=== PATIENT | male | born 1950 | race American Indian/Alaskan Native ===

== ENCOUNTER 2016-09-24 11:06 | Emergency (ER) | payer MEDICARE ==
[2016-09-24 15:29] VITALS: BP 159/69
--- NOTE | 2016-09-24 15:40 | Emergency Department Report ---
ED Back Pain/Injury HPI - General Chief Complaint: Extremity Injury, Lower Stated Complaint: LEFT LEG PAIN Time Seen by Provider: 09/24/16 15:10 Source: patient Limitations: No Limitations - History of Present Illness Initial Comments: "I hurt my back moving furniture" Complaint: back pain, back injury Onset/Timin -: Sudden, week(s) Similar Symptoms Previously: Yes Place: work Radiation: buttocks, left leg Severity: moderate Severity scale (0 -10): 4 Quality: sharp, aching Consistency: intermittent Improves With: none Worsens With: movement, other (bending twisting) Context: while lifting, turning/twisting, bending Associated Symptoms: denies: weakness, numbness, difficulty walking, difficulty urinating, incontinence, fever/chills, abdominal pain, nausea/vomiting, shortness of breath Treatments Prior to Arrival: other (none ) - Related Data Home Medications Medication Instructions Recorded Confirmed Last Taken Omeprazole [PriLOSEC] 20 mg PO QDAY 07/22/14 07/22/14 Unknown Previous Rx's Medication Instructions Recorded Last Taken Type Hydrochlorothiazide [Hctz] 12.5 mg PO QDAY #30 capsule 07/23/14 Unknown Rx Pantoprazole Sodium [Protonix] 20 mg PO BID #60 tablet. 07/23/14 Unknown Rx Sucralfate [Carafate] 1 gm PO ACHS #60 tablet 07/23/14 Unknown Rx Cyclobenzaprine [Flexeril] 10 mg PO TID PRN #30 tablet 09/24/16 Unknown Rx Naproxen [Naprosyn TAB] 500 mg PO BID PRN #60 tablet 09/24/16 Unknown Rx Allergies Allergy/AdvReac Type Severity Reaction Status Date / Time No Known Allergies Allergy Verified 09/24/16 12:15 ED Review of Systems ROS: Stated complaint: LEFT LEG PAIN Other details as noted in HPI Constitutional: denies: chills, fever Eyes: denies: eye pain, eye discharge, vision change ENT: denies: ear pain, throat pain Respiratory: denies: cough, shortness of breath, wheezing Cardiovascular: denies: chest pain, palpitations Endocrine: no symptoms reported Gastrointestinal: denies: abdominal pain, nausea, diarrhea Genitourinary: denies: urgency, dysuria Musculoskeletal: back pain Skin: denies: rash, lesions Neurological: denies: headache, weakness, paresthesias Psychiatric: denies: anxiety, depression Hematological/Lymphatic: denies: easy bleeding, easy bruising ED Past Medical Hx - Past Medical History Hx GERD: Yes Additional medical history: GI BLEED. PROSTATE - Surgical History Additional Surgical History: HERNIA REPAIR X 2 - Social History Smoking Status: Former Smoker Substance Use Type: None - Medications Home Medications: Home Medications Medication Instructions Recorded Confirmed Last Taken Type Omeprazole [PriLOSEC] 20 mg PO QDAY 07/22/14 07/22/14 Unknown History Hydrochlorothiazide [Hctz] 12.5 mg PO QDAY #30 capsule 07/23/14 Unknown Rx Pantoprazole Sodium [Protonix] 20 mg PO BID #60 tablet. 07/23/14 Unknown Rx Sucralfate [Carafate] 1 gm PO ACHS #60 tablet 07/23/14 Unknown Rx Cyclobenzaprine [Flexeril] 10 mg PO TID PRN #30 tablet 09/24/16 Unknown Rx Naproxen [Naprosyn TAB] 500 mg PO BID PRN #60 tablet 09/24/16 Unknown Rx ED Physical Exam - General Limitations: No Limitations General appearance: alert, in no apparent distress - Head Head exam: Present: atraumatic - Eye Eye exam: Present: normal appearance - ENT ENT exam: Present: mucous membranes moist - Neck Neck exam: Present: normal inspection - Respiratory Respiratory exam: Present: normal lung sounds bilaterally. Absent: respiratory distress - Cardiovascular Cardiovascular Exam: Present: regular rate, normal rhythm. Absent: systolic murmur, diastolic murmur, rubs, gallop - GI/Abdominal GI/Abdominal exam: Present: soft, normal bowel sounds - Rectal Rectal exam: Present: deferred - Extremities Exam Extremities exam: Present: normal inspection - Back Exam Back exam: Present: normal inspection, tenderness, muscle spasm. Absent: CVA tenderness (R), CVA tenderness (L), paraspinal tenderness, vertebral tenderness , rash noted - Expanded Back Exam Expanded Back exam: Present: intact bulbocavernosus reflex, other (no posterior vertebral point tenderness no paraspinuse muscle tenderness ). Absent: saddle anesthesia Back exam: Sciatic Notch Tenderness: Left, Positive Straight Leg Raise: Left, Negative Straight Leg Raising: Right - Neurological Exam Neurological exam: Present: alert, oriented X3 - Expanded Neurological Exam Expanded Patient oriented to: Present: person, place, time Speech: Present: fluid speech Sensory exam: Upper Extremity Light Touch: Normal, Upper Extremity Pin Prick: Normal, Upper Extremity Temperature: Normal, UE 2 Point Discrimination: Normal, Lower Extremity Light Touch: Normal, Lower Extremity Pin Prick: Normal, Lower Extremity Temperature: Normal, LE 2 Point Discrimination: Normal Motor strength exam: RUE: 5, LUE: 5, RLE: 5, LLE: 5 DTR: bicep (R): 2+, bicep (L): 2+, tricep (R): 2+, tricep (L): 2+, knee (R): 2+ , knee (L): 2+, ankle (R): 2+, ankle (L): 2+ Best Eye Response ([place]): (4) open spontaneously Best Motor Response ([place]): (6) obeys commands Best Verbal Response ([place]): (5) oriented [place] Total: 15 - Psychiatric Psychiatric exam: Present: normal affect, normal mood - Skin Skin exam: Present: warm, dry, intact, normal color. 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 who presents LL back and LLE pain x 1 week pt advies "I hurt my back moving furniture last weak' pain described as 4/10 aching and spasm pt denies dysuria no hematuria no urinary urgency or frequency , exam: pt appears with nad , back: no posterior vertebral point tenderness no paraspinus muscle tenderness no weakness no paresthesia no tingling , no loss or decrease in bowel or bladder function , pain improved with toradol IM, pt is curerently ambulatory gait is steady with nad at this time UA: normal Critical care attestation.: If time is entered above; I have spent that time in minutes in the direct care of this critically ill patient, excluding procedure time. ED Disposition Clinical Impression: Low back strain Qualifiers: Encounter type: initial encounter Qualified Code(s): S39.012A - Strain of muscle, fascia and tendon of lower back, initial encounter Disposition: TO HOME OR SELFCARE Is pt being admited?: No Does the pt Need Aspirin: No Condition: Stable Prescriptions: Cyclobenzaprine [Flexeril] 10 mg PO TID PRN #30 tablet PRN Reason: Muscle Spasm Naproxen [Naprosyn TAB] 500 mg PO BID PRN #60 tablet PRN Reason: Pain Referrals: PRIMARY CARE, [Primary Care Provider] - 3-5 Days Forms: Work/School Release Form(ED) Time of Disposition: 16:51
[2016-09-24] MEDS ORDERED: TORADOL IM ONE (15:41)
[2016-09-24 16:28] LABS: Bilirubin,Urine NEG (Negative); Blood,Urine NEG (Negative); Ketones,Urine NEG (Negative); Leukocyte Esterase,Urine NEG (Negative); Nitrite,Urine NEG (Negative); Protein,Urine <15 mg/dL mg/dL (Negative); Urobilinogen,Urine < 2.0 mg/dL (<2.0); WBC,Urine < 1.0 /HPF (0.0-6.0)
== END 2016-09-24 16:55 | disposition home or self-care (01) ==
LOC: ED 11:06
DX: S39.012A Strain of muscle, fascia and tendon of lower back, initial encounter (principal); Z87.891 Personal history of nicotine dependence; X50.1XXA Overexertion from prolonged static or awkward postures, initial encounter; Y93.89 Activity, other specified; Y99.8 Other external cause status; Y92.89 Other specified places as the place of occurrence of the external cause
CPT/HCPCS: 81001; 96372; 99283; J1885

== ENCOUNTER 2019-05-31 21:56 | Emergency (ER) | payer OTHER, MEDICARE ==
[2019-05-31] MEDS ORDERED: IBUPROFEN 600 MG TAB PO ONE ×2 (22:11→22:13)
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
--- NOTE | 2019-05-31 22:42 | XRay Report ---
LUMBAR SPINE 3 VIEWS INDICATION: pain. COMPARISON: No relevant prior imaging study available. FINDINGS: Lumbar vertebral body height is maintained. There is moderate diffuse disc space narrowing. In the lo wer lumbar facet arthropathy is noted as well. No listhesis is seen. IMPRESSION: 1. No acute findings. Signer Name: Waldemar Cornell MD Signed: 05/31/2019 10:37 PM Workstation Name: [id number]
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
[2019-06-01 03:09] VITALS: BP 164/93
== END 2019-06-01 03:05 | disposition home or self-care (01) ==
LOC: ED 21:56
DX: S16.1XXA Strain of muscle, fascia and tendon at neck level, initial encounter (principal); M54.5 Low back pain; K21.9 Gastro-esophageal reflux disease without esophagitis; Z98.890 Other specified postprocedural states; Z79.1 Long term (current) use of non-steroidal anti-inflammatories (NSAID); Z79.899 Other long term (current) drug therapy; V49.49XA Driver injured in collision with other motor vehicles in traffic accident, initial encounter; Y93.89 Activity, other specified; Y92.488 Other paved roadways as the place of occurrence of the external cause; Y99.8 Other external cause status
CPT/HCPCS: 72100

== ENCOUNTER 2019-07-02 14:21 | Emergency (ER) | payer MEDICARE, OTHER ==
[2019-07-02 15:22] LABS: Basophils % (Auto) 0.7 % (0.0-1.8); Eosinophils # (Auto) 0.3 K/mm3 (0.0-0.4); Eosinophils % (Auto) 4.4 % (0.0-4.3); Hematocrit 42.6 % (35.5-45.6); Hemoglobin 14.3 gm/dl (11.8-15.2); Lymphocytes # (Auto) 2.8 K/mm3 (1.2-5.4); Lymphocytes % (Auto) 44.7 % (13.4-35.0); Mean Corpuscular HGB Conc 34 % (32-34); Mean Corpuscular Volume 97 fl (84-94); Monocytes # (Auto) 0.6 K/mm3 (0.0-0.8); Platelet Count 324 K/mm3 (140-440); Red Blood Count 4.38 M/mm3 (3.65-5.03); Red Cell Distribution Width 12.8 % (13.2-15.2)
[2019-07-02 15:37] LABS: Alanine Aminotransferase 14 units/L (7-56); Albumin 4.2 g/dL (3.9-5); BUN/Creatinine Ratio 9; Blood Urea Nitrogen 7 mg/dL (9-20); Calcium 9.1 mg/dL (8.4-10.2); Hemolysis Index 11
[2019-07-02] MEDS ORDERED: SODIUM CHLORIDE 0.9% 1000 ML 1,000 ML IV ONE (16:33)
--- NOTE | 2019-07-02 17:02 | Emergency Department Report ---
ED Abdominal Pain HPI - General Chief Complaint: Abdominal Pain Stated Complaint: LEFT FLANK PAIN Time Seen by Provider: 07/02/19 16:15 Source: patient Mode of arrival: Ambulatory Limitations: No Limitations - History of Present Illness Initial Comments: Patient is a 69-year-old male presents emergency room complaints of left lower quadrant abdominal pain that began 2 days ago. He states he also has some left lower back pain. He denies any nausea, vomiting, diarrhea, fever, hematochezia, melena, chest pain, shortness of breath. He states that he had a normal bowel movement 2 days ago. He states he has a past medical history of GERD and erosive PUD requiring emergent surgery in . Patient states his blood pressure is currently being watched by his primary care doctor but he is not on any medications currently. He denies any allergies to medications. - Related Data Home Medications Medication Instructions Recorded Confirmed Last Taken Omeprazole [PriLOSEC] 20 mg PO QDAY 07/22/14 07/22/14 Unknown Previous Rx's Medication Instructions Recorded Last Taken Type Pantoprazole Sodium [Protonix] 20 mg PO BID #60 tablet. 07/23/14 Unknown Rx hydroCHLOROthiazide [Hctz] 12.5 mg PO QDAY #30 capsule 07/23/14 Unknown Rx Cyclobenzaprine [Flexeril] 10 mg PO TID PRN #30 tablet 09/24/16 Unknown Rx Naproxen [Naprosyn TAB] 500 mg PO BID PRN #60 tablet 09/24/16 Unknown Rx Ibuprofen [Motrin 600 MG tab] 600 mg PO Q8H PRN #20 tablet 06/01/19 Unknown Rx Methocarbamol [Robaxin] 500 mg PO BID PRN #15 tablet 06/01/19 Unknown Rx Docusate Sodium [Colace] 100 mg PO BID PRN #14 capsule 07/02/19 Unknown Rx Pantoprazole [Protonix TAB] 20 mg PO BID #60 tablet. 07/02/19 Unknown Rx Sucralfate [Carafate] 1 gm PO ACHS #21 tablet 07/02/19 Unknown Rx Allergies Allergy/AdvReac Type Severity Reaction Status Date / Time No Known Allergies Allergy Verified 09/24/16 12:15 ED Review of Systems ROS: Stated complaint: LEFT FLANK PAIN Other details as noted in HPI Comment: All other systems reviewed and negative ED Past Medical Hx - Past Medical History Previous Medical History?: Yes Hx GERD: Yes Additional medical history: GI BLEED. PROSTATE - Surgical History Past Surgical History?: Yes Additional Surgical History: HERNIA REPAIR X 2 - Social History Smoking Status: Never Smoker Substance Use Type: None - Medications Home Medications: Home Medications Medication Instructions Recorded Confirmed Last Taken Type Omeprazole [PriLOSEC] 20 mg PO QDAY 07/22/14 07/22/14 Unknown History Pantoprazole Sodium [Protonix] 20 mg PO BID #60 tablet. 07/23/14 Unknown Rx hydroCHLOROthiazide [Hctz] 12.5 mg PO QDAY #30 capsule 07/23/14 Unknown Rx Cyclobenzaprine [Flexeril] 10 mg PO TID PRN #30 tablet 09/24/16 Unknown Rx Naproxen [Naprosyn TAB] 500 mg PO BID PRN #60 tablet 09/24/16 Unknown Rx Ibuprofen [Motrin 600 MG tab] 600 mg PO Q8H PRN #20 tablet 06/01/19 Unknown Rx Methocarbamol [Robaxin] 500 mg PO BID PRN #15 tablet 06/01/19 Unknown Rx Docusate Sodium [Colace] 100 mg PO BID PRN #14 capsule 07/02/19 Unknown Rx Pantoprazole [Protonix TAB] 20 mg PO BID #60 tablet. 07/02/19 Unknown Rx Sucralfate [Carafate] 1 gm PO ACHS #21 tablet 07/02/19 Unknown Rx ED Physical Exam - General Limitations: No Limitations General appearance: alert, in no apparent distress - Head Head exam: Present: atraumatic, normocephalic - Eye Eye exam: Present: normal appearance - ENT ENT exam: Present: mucous membranes moist - Respiratory Respiratory exam: Present: normal lung sounds bilaterally. Absent: respiratory distress, wheezes, rales, rhonchi, stridor, chest wall tenderness, accessory muscle use, decreased breath sounds, prolonged expiratory - Cardiovascular Cardiovascular Exam: Present: regular rate, normal rhythm, normal heart sounds. Absent: systolic murmur, diastolic murmur, rubs, gallop - GI/Abdominal GI/Abdominal exam: Present: soft, tenderness (LLQ), normal bowel sounds, other (old, healed scar present in the midline of the abdomen). Absent: distended, guarding, rebound, rigid, mass, hernia - Back Exam Back exam: Absent: CVA tenderness (R), CVA tenderness (L) - Neurological Exam Neurological exam: Present: alert, oriented X3 - Psychiatric Psychiatric exam: Present: normal affect, normal mood - Skin Skin exam: Present: warm, dry, intact ED Course Vital Signs 07/02/19 07/02/19 14:26 18:42 Temperature 98.2 F Pulse Rate 94 H 54 L Respiratory 16 16 Rate Blood Pressure 156/102 Blood Pressure 187/108 [Right] O2 Sat by Pulse 96 98 Oximetry ED Medical Decision Making - Lab Data Result diagrams: 07/02/19 14:34 07/02/19 14:34 Lab Results 07/02/19 07/02/19 07/02/19 Range/Units 14:34 14:34 17:18 WBC 6.3 (4.5-11.0) K/mm3 RBC 4.38 (3.65-5.03) M/mm3 Hgb 14.3 (11.8-15.2) gm/dl Hct 42.6 (35.5-45.6) % MCV 97 H (84-94) fl MCH 33 H (28-32) pg MCHC 34 (32-34) % RDW 12.8 L (13.2-15.2) % Plt Count 324 (140-440) K/mm3 Lymph % (Auto) 44.7 H (13.4-35.0) % [place] % (Auto) 10.0 H (0.0-7.3) % Eos % (Auto) 4.4 H (0.0-4.3) % Baso % (Auto) 0.7 (0.0-1.8) % Lymph # 2.8 (1.2-5.4) K/mm3 [place] # 0.6 (0.0-0.8) K/mm3 Eos # 0.3 (0.0-0.4) K/mm3 Baso # 0.0 (0.0-0.1) K/mm3 Seg Neutrophils % 40.2 (40.0-70.0) % Seg Neutrophils # 2.5 (1.8-7.7) K/mm3 Sodium 139 (137-145) mmol/L Potassium 3.8 (3.6-5.0) mmol/L Chloride 103.2 (98-107) mmol/L Carbon Dioxide 20 L (22-30) mmol/L Anion Gap 20 mmol/L BUN 7 L (9-20) mg/dL Creatinine 0.8 (0.8-1.5) mg/dL Estimated GFR > 60 ml/min BUN/Creatinine Ratio 9 % Glucose 144 H (75-100) mg/dL Calcium 9.1 (8.4-10.2) mg/dL Total Bilirubin 0.70 (0.1-1.2) mg/dL AST 16 (5-40) units/L ALT 14 (7-56) units/L Alkaline Phosphatase 52 (35-129) units/L Total Protein 7.4 (6.3-8.2) g/dL Albumin 4.2 (3.9-5) g/dL Albumin/Globulin Ratio 1.3 % Urine Color Yellow (Yellow) Urine Turbidity Clear (Clear) Urine pH 7.0 (5.0-7.0) Ur Specific [place] 1.012 (1.003-1.030) Urine Protein <15 mg/dl (Negative) mg/dL Urine Glucose (UA) Neg (Negative) mg/dL Urine Ketones Neg (Negative) mg/dL Urine Blood Neg (Negative) Urine Nitrite Neg (Negative) Urine Bilirubin Neg (Negative) Urine Urobilinogen < 2.0 (<2.0) mg/dL Ur Leukocyte Esterase Neg (Negative) Urine WBC (Auto) < 1.0 (0.0-6.0) /HPF Urine RBC (Auto) 1.0 (0.0-6.0) /HPF Urine Bacteria (Auto) 1+ (Negative) /HPF - Radiology Data Radiology results: report reviewed CT abdomen pelvis w con INDICATION / CLINICAL INFORMATION: MAIN: LLQ abd pain x4days [id number] ml. TECHNIQUE: All CT scans at this location are performed using CT dose reduction for ALARA by means of automated exposure control. COMPARISON: None available. FINDINGS: No free fluid is seen in the abdomen. Diffuse atherosclerotic changes present without evidence for an aneurysm. Tiny bilateral renal cysts are present. The liver, spleen, pancreas and adrenal glands are normal. There is a lipoma in one of the oblique muscles on the right laterally In the pelvis, no free fluid is seen. No enlarged lymph nodes are identified. The prostate is enlarged compressing the base of the bladder and the bladder is moderately distended.. Changes of diverticulosis are present. The appendix is normal. Severe degenerative changes seen in the left hip with moderately advanced degenerative change throughout the lumbar spine IMPRESSION: 1. Enlarged prostate with moderately distended bladder 2. Diffuse atherosclerotic change without evidence of an aneurysm 3. Tiny bilateral renal cysts 4. Lipoma in one of the oblique muscles on the right laterally 5. Diverticulosis 6. Severe degenerative change in the left hip with moderately advanced degenerative change throughout the lumbar spine Signer Name: Aneudy Carter MD FACR Signed: 07/02/2019 5:34 PM Workstation Name: [id number] Transcribed By: Dictated By: Aneudy Carter MD Electronically Authenticated By: Aneudy Carter MD Signed Date/Time: 07/02/191733 DD/ 29 TD/TT: - Medical Decision Making Patient is a 69-year-old male presents emergency room complaints of left lower quadrant abdominal pain that began 2 days ago. He states he also has some left lower back pain. He denies any nausea, vomiting, diarrhea, fever, hematochezia, melena, chest pain, shortness of breath. He states that he had a normal bowel movement 2 days ago. He states he has a past medical history of GERD and erosi ve PUD requiring emergent surgery in . Patient states his blood pressure is currently being watched by his primary care doctor but he is not on any medications currently. He denies any allergies to medications. Vitals are stable. Labs are stable. UA within normal limits. On exam left lower quadrant tenderness to palpation, no guarding, no rigidity, no rebound, normal bowel sounds. CT abd pelvis with IV contrast: 1. Enlarged prostate with moderately distended bladder 2. Diffuse atherosclerotic change without evidence of an aneurysm 3. Tiny bilateral renal cysts 4. Lipoma in one of the oblique muscles on the right laterally 5. Diverticulosis 6. Severe degenerative change in the left hip with moderately advanced degenerative change throughout the lumbar spine. Discussed all results with patient. Advised patient that he would need to see a urologist for the enlarged prostate and a GI doctor for the abdominal pain. And that he would also need to follow-up with his primary care physician. Patient given prescription for Carafate, Protonix, Colace. He states that the pain does worsen after eating so could be related to PUD but he is not having any hematochezia or melena. advised pt Please take medication as prescribed. Increase your water intake. Increase your fiber intake. Follow-up with a primary care doctor. Follow-up with a urologist regarding the enlarged prost ate. Follow-up with a GI doctor regarding the abdominal pain. Return to the emergency room immediately for any new or worsening symptoms. - Differential Diagnosis Diverticulitis, diverticulosis, BPH, UTI, colitis, obstruction, constipatio Critical care attestation.: If time is entered above; I have spent that time in minutes in the direct care of this critically ill patient, excluding procedure time. ED Disposition Clinical Impression: Enlarged prostate, Atherosclerosis, Renal cyst, Diverticulosis Abdominal pain Qualifiers: Abdominal location: left lower quadrant Qualified Code(s): R10.32 - Left lower quadrant pain Lipoma Qualifiers: Lipoma location: trunk Qualified Code(s): D17.1 - Benign lipomatous neoplasm of skin and subcutaneous tissue of trunk Degenerative joint disease of left hip Qualifiers: Osteoarthritis type: unspecified Qualified Code(s): M16.12 - Unilateral primary osteoarthritis, left hip Disposition: TO HOME OR SELFCARE Is pt being admited?: No Does the pt Need Aspirin: No Condition: Stable Instructions: Constipation (ED), High Fiber Diet (ED), Abdominal Pain (ED) Additional Instructions: Please take medication as prescribed. Increase your water intake. Increase your fiber intake. Follow-up with a primary care doctor. Follow-up with a urologist regarding the enlarged prostate. Follow-up with a GI doctor regarding the abdominal pain. Return to the emergency room immediately for any new or worsening symptoms. Prescriptions: Sucralfate [Carafate] 1 gm PO ACHS #21 tablet Docusate Sodium [Colace] 100 mg PO BID PRN #14 capsule PRN Reason: constipation Pantoprazole [Protonix TAB] 20 mg PO BID #60 tablet. Referrals: [facility] [Primary Care Provider] - 2-3 Days NEWTON DAILEY MD [Staff Physician] - 2-3 Days [facility] [Provider Group] - 2-3 Days Time of Disposition: 17:57 Print Language: KYRGYZ
[2019-07-02 17:38] LABS: Bacteria,Urine 1+ /HPF (Negative); Bilirubin,Urine NEG (Negative); Blood,Urine NEG (Negative); Color,Urine Yellow (Yellow); Protein,Urine <15 mg/dL mg/dL (Negative); Urobilinogen,Urine < 2.0 mg/dL (<2.0); WBC,Urine < 1.0 /HPF (0.0-6.0)
--- NOTE | 2019-07-02 17:38 | Cat Scan Report ---
CT abdomen pelvis w con INDICATION / CLINICAL INFORMATION: MAIN: LLQ abd pain x4days [id number] ml. TECHNIQUE: All CT scans at this location are performed using CT dose reduction for ALARA by means of automated e xposure control. COMPARISON: None available. FINDINGS: No free fluid is seen in the abdomen. Diffuse atherosclerotic changes present without evidence for an aneurysm. Tiny bilateral renal cysts are present. The liver, spleen, pancreas and adrenal glands are normal. There is a lipoma in one of the oblique muscles on the right laterally In the pelvis, no free fluid is seen. No enlarged lymph nodes are identified. The prostate is enlarge d compressing the base of the bladder and the bladder is moderately distended.. Changes of diverticul osis are present. The appendix is normal. Severe degenerative changes seen in the left hip with moder ately advanced degenerative change throughout the lumbar spine IMPRESSION: 1. Enlarged prostate with moderately distended bladder 2. Diffuse atherosclerotic change without evidence of an aneurysm 3. Tiny bilateral renal cysts 4. Lipoma in one of the oblique muscles on the right laterally 5. Diverticulosis 6. Severe degenerative change in the left hip with moderately advanced degenerative change throughout the lumbar spine Signer Name: Aneudy Carter MD FACR Signed: 07/02/2019 5:34 PM Workstation Name: [id number]
[2019-07-02 18:43] VITALS: BP 187/108
== END 2019-07-02 18:43 | disposition home or self-care (01) ==
LOC: ED 14:21
DX: K57.90 Diverticulosis of intestine, part unspecified, without perforation or abscess without bleeding (principal); D17.1 Benign lipomatous neoplasm of skin and subcutaneous tissue of trunk; M16.12 Unilateral primary osteoarthritis, left hip; I70.8 Atherosclerosis of other arteries; N28.1 Cyst of kidney, acquired
CPT/HCPCS: 36415; 74177; 80053; 81001; 85025; 99284; J7030; Q9967

== ENCOUNTER 2019-12-19 12:51 | Emergency (ER) | payer MEDICARE ==
[2019-12-19 13:03] VITALS: BP 157/92
[2019-12-19 14:09] LABS: Basophils # (Auto) 0.1 K/mm3 (0.0-0.1); Eosinophils # (Auto) 0.4 K/mm3 (0.0-0.4); Eosinophils % (Auto) 6.9 % (0.0-4.3); Hematocrit 41.1 % (35.5-45.6); Hemoglobin 13.5 gm/dl (11.8-15.2); Lymphocytes # (Auto) 2.3 K/mm3 (1.2-5.4); Lymphocytes % (Auto) 43.3 % (13.4-35.0); Mean Corpuscular HGB Conc 33 % (32-34); Mean Corpuscular Volume 99 fl (84-94); Monocytes # (Auto) 0.6 K/mm3 (0.0-0.8); Monocytes % (Auto) 11.9 % (0.0-7.3); Platelet Count 291 K/mm3 (140-440); Red Blood Count 4.17 M/mm3 (3.65-5.03); Red Cell Distribution Width 13.3 % (13.2-15.2)
[2019-12-19 14:21] LABS: Alanine Aminotransferase 14 units/L (7-56); Albumin 4.3 g/dL (3.9-5); Blood Urea Nitrogen 7 mg/dL (9-20); Calcium 9.1 mg/dL (8.4-10.2); Hemolysis Index 5
[2019-12-19 14:25] LABS: BUN/Creatinine Ratio 10
[2019-12-19] MEDS ORDERED: SODIUM CHLORIDE 0.9% 1000 ML 1,000 ML IV ONE (15:37)
[2019-12-19] MEDS ORDERED: ONDANSETRON 4 MG/2 ML INJ IV ONE (15:37)
[2019-12-19] MEDS ORDERED: FAMOTIDINE 20 MG/2 ML INJ IV ONE (15:37)
[2019-12-19] MEDS ORDERED: MORPHINE 4 MG/1 ML INJ IV ONE (15:37)
[2019-12-19] MEDS ORDERED: ALUM-MAG HYDROXIDE-SIMETHICONE 200-200-20MG/5ML ORAL LIQD 30 ML PO ONE (15:38)
--- NOTE | 2019-12-19 16:28 | Emergency Department Report ---
ED Abdominal Pain HPI - General Chief Complaint: Abdominal Pain Stated Complaint: ABD PAIN Time Seen by Provider: 12/19/19 15:28 Source: patient Mode of arrival: Ambulatory Limitations: No Limitations - History of Present Illness Initial Comments: Patient is a 69-year-old male presents emergency room with complaints of abdominal pain that began 3 days ago. He states he has associated nausea, generalized weakness, back pain. He denies any fever, vomiting, diarrhea, dysuria, hematuria, hematochezia, hematemesis, melena. He states he had a normal bowel movement yesterday. He states that worsens with eating. He states he has a past medical history of GERD. Allergies to medications. He states that he does have a GI doctor at [facility]. He states he had a EGD/colonoscopy 2 years ago. Severity scale (0 -10): 8 - Related Data Home Medications Medication Instructions Recorded Confirmed Last Taken Omeprazole [PriLOSEC] 20 mg PO QDAY 07/22/14 07/22/14 Unknown Previous Rx's Medication Instructions Recorded Last Taken Type Pantoprazole Sodium [Protonix] 20 mg PO BID #60 tablet. 07/23/14 Unknown Rx hydroCHLOROthiazide [Hctz] 12.5 mg PO QDAY #30 capsule 07/23/14 Unknown Rx Cyclobenzaprine [Flexeril] 10 mg PO TID PRN #30 tablet 09/24/16 Unknown Rx Naproxen [Naprosyn TAB] 500 mg PO BID PRN #60 tablet 09/24/16 Unknown Rx Ibuprofen [Motrin 600 MG tab] 600 mg PO Q8H PRN #20 tablet 06/01/19 Unknown Rx Methocarbamol [Robaxin] 500 mg PO BID PRN #15 tablet 06/01/19 Unknown Rx Docusate Sodium [Colace] 100 mg PO BID PRN #14 capsule 07/02/19 Unknown Rx Pantoprazole [Protonix TAB] 20 mg PO BID #60 tablet. 07/02/19 Unknown Rx Sucralfate [Carafate] 1 gm PO ACHS #21 tablet 07/02/19 Unknown Rx Famotidine [Pepcid] 40 mg PO QHS #14 tablet 12/19/19 Unknown Rx traMADoL [Ultram 50 MG tab] 50 mg PO Q6HR PRN #10 tablet 12/19/19 Unknown Rx Allergies Allergy/AdvReac Type Severity Reaction Status Date / Time No Known Allergies Allergy Verified 09/24/16 12:15 ED Review of Systems ROS: Stated complaint: ABD PAIN Other details as noted in HPI Comment: All other systems reviewed and negative ED Past Medical Hx - Past Medical History Previous Medical History?: Yes Hx GERD: Yes Additional medical history: GI BLEED. PROSTATE - Surgical History Past Surgical History?: Yes Additional Surgical History: HERNIA REPAIR X 2 - Social History Smoking Status: Former Smoker Substance Use Type: None - Medications Home Medications: Home Medications Medication Instructions Recorded Confirmed Last Taken Type Omeprazole [PriLOSEC] 20 mg PO QDAY 07/22/14 07/22/14 Unknown History Pantoprazole Sodium [Protonix] 20 mg PO BID #60 tablet. 07/23/14 Unknown Rx hydroCHLOROthiazide [Hctz] 12.5 mg PO QDAY #30 capsule 07/23/14 Unknown Rx Cyclobenzaprine [Flexeril] 10 mg PO TID PRN #30 tablet 09/24/16 Unknown Rx Naproxen [Naprosyn TAB] 500 mg PO BID PRN #60 tablet 09/24/16 Unknown Rx Ibuprofen [Motrin 600 MG tab] 600 mg PO Q8H PRN #20 tablet 06/01/19 Unknown Rx Methocarbamol [Robaxin] 500 mg PO BID PRN #15 tablet 06/01/19 Unknown Rx Docusate Sodium [Colace] 100 mg PO BID PRN #14 capsule 07/02/19 Unknown Rx Pantoprazole [Protonix TAB] 20 mg PO BID #60 tablet. 07/02/19 Unknown Rx Sucralfate [Carafate] 1 gm PO ACHS #21 tablet 07/02/19 Unknown Rx Famotidine [Pepcid] 40 mg PO QHS #14 tablet 12/19/19 Unknown Rx traMADoL [Ultram 50 MG tab] 50 mg PO Q6HR PRN #10 tablet 12/19/19 Unknown Rx ED Physical Exam - General Limitations: No Limitations General appearance: alert, in no apparent distress - Head Head exam: Present: atraumatic, normocephalic - Eye Eye exam: Present: normal appearance - ENT ENT exam: Present: mucous membranes moist - Respiratory Respiratory exam: Present: normal lung sounds bilaterally. Absent: respiratory distress, wheezes, rales, rhonchi, stridor, chest wall tenderness, accessory muscle use, decreased breath sounds, prolonged expiratory - Cardiovascular Cardiovascular Exam: Present: regular rate, normal rhythm, normal heart sounds. Absent: systolic murmur, diastolic murmur, rubs, gallop - GI/Abdominal GI/Abdominal exam: Present: soft, tenderness (mild generalized upper), normal bowel sounds. Absent: distended, guarding, rebound, rigid - Neurological Exam Neurological exam: Present: alert, oriented X3 - Psychiatric Psychiatric exam: Present: normal affect, normal mood - Skin Skin exam: Present: warm, dry, intact ED Course Vital Signs 12/19/19 13:02 Temperature 98.2 F Pulse Rate 70 Respiratory 18 Rate Blood Pressure 157/92 O2 Sat by Pulse 100 Oximetry ED Medical Decision Making - Lab Data Result diagrams: 12/19/19 13:31 12/19/19 13:31 Lab Results 12/19/19 12/19/19 12/19/19 Range/Units 13:31 13:31 16:59 WBC 5.3 (4.5-11.0) K/mm3 RBC 4.17 (3.65-5.03) M/mm3 Hgb 13.5 (11.8-15.2) gm/dl Hct 41.1 (35.5-45.6) % MCV 99 H (84-94) fl MCH 32 (28-32) pg MCHC 33 (32-34) % RDW 13.3 (13.2-15.2) % Plt Count 291 (140-440) K/mm3 Lymph % (Auto) 43.3 H (13.4-35.0) % [place] % (Auto) 11.9 H (0.0-7.3) % Eos % (Auto) 6.9 H (0.0-4.3) % Baso % (Auto) 1.0 (0.0-1.8) % Lymph # 2.3 (1.2-5.4) K/mm3 [place] # 0.6 (0.0-0.8) K/mm3 Eos # 0.4 (0.0-0.4) K/mm3 Baso # 0.1 (0.0-0.1) K/mm3 Seg Neutrophils % 36.9 L (40.0-70.0) % Seg Neutrophils # 2.0 (1.8-7.7) K/mm3 Sodium 142 (137-145) mmol/L Potassium 4.1 (3.6-5.0) mmol/L Chloride 106.0 (98-107) mmol/L Carbon Dioxide 24 (22-30) mmol/L Anion Gap 16 mmol/L BUN 7 L (9-20) mg/dL Creatinine 0.7 L (0.8-1.3) mg/dL Estimated GFR > 60 ml/min BUN/Creatinine Ratio 10 % Glucose 111 H (75-100) mg/dL Calcium 9.1 (8.4-10.2) mg/dL Magnesium 1.70 (1.7-2.3) mg/dL Total Bilirubin 0.90 (0.1-1.2) mg/dL AST 15 (5-40) units/L ALT 14 (7-56) units/L Alkaline Phosphatase 46 (35-129) units/L Total Creatine Kinase 86 (55-170) units/L Troponin T < 0.010 (0.00-0.029) ng/mL Total Protein 7.3 (6.3-8.2) g/dL Albumin 4.3 (3.9-5) g/dL Albumin/Globulin Ratio 1.4 % Lipase 15 (13-60) units/L Urine Color (Yellow) Urine Turbidity (Clear) Urine pH (5.0-7.0) Ur Specific Dix (1.003-1.030) Urine Protein (Negative) mg/dL Urine Glucose (UA) (Negative) mg/dL Urine Ketones (Negative) mg/dL Urine Blood (Negative) Urine Nitrite (Negative) Urine Bilirubin (Negative) Urine Urobilinogen (<2.0) mg/dL Ur Leukocyte Esterase (Negative) Urine WBC (Auto) (0.0-6.0) /HPF Urine RBC (Auto) (0.0-6.0) /HPF 12/19/19 Range/Units Unknown WBC (4.5-11.0) K/mm3 RBC (3.65-5.03) M/mm3 Hgb (11.8-15.2) gm/dl Hct (35.5-45.6) % MCV (84-94) fl MCH (28-32) pg MCHC (32-34) % RDW (13.2-15.2) % Plt Count (140-440) K/mm3 Lymph % (Auto) (13.4-35.0) % [place] % (Auto) (0.0-7.3) % Eos % (Auto) (0.0-4.3) % Baso % (Auto) (0.0-1.8) % Lymph # (1.2-5.4) K/mm3 [place] # (0.0-0.8) K/mm3 Eos # (0.0-0.4) K/mm3 Baso # (0.0-0.1) K/mm3 Seg Neutrophils % (40.0-70.0) % Seg Neutrophils # (1.8-7.7) K/mm3 Sodium (137-145) mmol/L Potassium (3.6-5.0) mmol/L Chloride (98-107) mmol/L Carbon Dioxide (22-30) mmol/L Anion Gap mmol/L BUN (9-20) mg/dL Creatinine (0.8-1.3) mg/dL Estimated GFR ml/min BUN/Creatinine Ratio % Glucose (75-100) mg/dL Calcium (8.4-10.2) mg/dL Magnesium (1.7-2.3) mg/dL Total Bilirubin (0.1-1.2) mg/dL AST (5-40) units/L ALT (7-56) units/L Alkaline Phosphatase (35-129) units/L Total Creatine Kinase (55-170) units/L Troponin T (0.00-0.029) ng/mL Total Protein (6.3-8.2) g/dL Albumin (3.9-5) g/dL Albumin/Globulin Ratio % Lipase (13-60) units/L Urine Color Straw (Yellow) Urine Turbidity Clear (Clear) Urine pH 6.0 (5.0-7.0) Ur Specific Dix 1.005 (1.003-1.030) Urine Protein <15 mg/dl (Negative) mg/dL Urine Glucose (UA) Neg (Negative) mg/dL Urine Ketones Neg (Negative) mg/dL Urine Blood Neg (Negative) Urine Nitrite Neg (Negative) Urine Bilirubin Neg (Negative) Urine Urobilinogen < 2.0 (<2.0) mg/dL Ur Leukocyte Esterase Neg (Negative) Urine WBC (Auto) < 1.0 (0.0-6.0) /HPF Urine RBC (Auto) 1.0 (0.0-6.0) /HPF - EKG Data EKG shows normal: sinus rhythm, axis, intervals, QRS complexes, ST-T waves Rate: bradycardia - Radiology Data Radiology results: report reviewed CT OF THE ABDOMEN AND PELVIS WITH INTRAVENOUS CONTRAST INDICATION / CLINICAL INFORMATION: Abdominal and back pain with nausea. TECHNIQUE: The patient received 100 cc Omnipaque [address] scans at this location are performed using CT dose reduction for ALARA by means of automated exposure control. COMPARISON: 07/02/2019. FINDINGS: ABDOMEN: There are several tiny calcified stones in the gallbladder. The gallbladder is normal in size without wall thickening or bile duct dilatation. The liver, spleen, pancreas, and adrenal glands are normal. There are a couple of tiny bilateral simple renal cysts. There are surgical changes involving the stomach. There is no evidence of bowel obstruction, wall thickening or free air. There is a small stable fat-containing hernia involving the right lateral abdominal wall posteriorly between the 11th and 12th ribs without acute complication. No adenopathy is seen. There are moderate atherosclerotic calcifications involving aorta without aneurysm. Mild bibasilar subsegmental atelectasis is present. PELVIS: The prostate gland is moderately enlarged. The distal ureters and urinary bladder are normal. A normal appendix is present. There are multiple left colonic diverticula without acute inflammation. No abnormal mass or fluid collection is seen. There is mild heterotopic ossification in the iliopsoas tendon distally on the left. There are advanced degenerative changes involving the left hip. Advanced lumbar spondylosis is also present. IMPRESSION: 1. No acute abnormality or significant change. 2. Cholelithiasis without CT evidence of acute cholecystitis. 3. Diverticulosis. Signer Name: Francisco J Kelly MD Signed: 12/19/2019 5:12 PM Workstation Name: [id number] Transcribed By: RT Dictated By: Francisco J Kelly MD Electronically Authenticated By: Francisco J Kelly MD Signed Date/Time: 12/19/191711 DD/ 03 TD/TT: - Medical Decision Making Patient is a 69-year-old male presents emergency room with complaints of abdominal pain that began 3 days ago. He states he has associated nausea, generalized weakness, back pain. He denies any fever, vomiting, diarrhea, dysuria, hematuria, hematochezia, hematemesis, melena. He states he had a normal bowel movement yesterday. He states that worsens with eating. He states he has a past medical history of GERD. Allergies to medications. He states that he does have a GI doctor at [facility]. He states he had a EGD/colonoscopy 2 years ago. vss. on exam: mild generalized upper abd ttp, no guarding, no rebound, no rigidity, normal bowel sounds. labs are normal, UA is WNL. CT abd pelvis with IV contrast: 1. No acute abnormality or significant change. 2. Cholelithiasis without CT evidence of acute cholecystitis. 3. Diverticulosis. pt given 1L IVF, zofran, morphine, pepcid, maalox and symptoms completely improved. he is feeling much better and states his abdominal pain resolved. pt given prescription pepcid and tramadol. discussed results with pt and answered questions. discussed strict return precautions. pt will be referred to PCP and general surgery. advised pt Please take medication as prescribed. Do not drive or operate machinery while taking pain medication. Increase your wate r intake. Follow-up with a primary care doctor. Follow-up with a general surgeon. Return to emergency room immediately for any new or worsening symptoms including but not limited to worsening of abdominal pain, vomiting, fever, unable to tolerate by mouth intake, etc. - Differential Diagnosis PUD, GERD, obstruction, pancreatitis, cholelithiasis, cholecystitis Critical care attestation.: If time is entered above; I have spent that time in minutes in the direct care of this critically ill patient, excluding procedure time. ED Disposition Clinical Impression: Nausea, Generalized weakness Abdominal pain Qualifiers: Abdominal location: upper abdomen, unspecified Qualified Code(s): R10.10 - Upper abdominal pain, unspecified Back pain Qualifiers: Back pain location: low back pain Chronicity: acute Back pain laterality: unspecified Sciatica presence: without sciatica Qualified Code(s): M54.5 - Low back pain Cholelithiasis Qualifiers: Cholelithiasis location: gallbladder Cholecystitis presence: without cholecystitis Biliary obstruction: without biliary obstruction Qualified Code(s): K80.20 - Calculus of gallbladder without cholecystitis without obstruction Disposition: TO HOME OR SELFCARE Is pt being admited?: No Does the pt Need Aspirin: No Condition: Stable Instructions: Cholelithiasis (ED), Acute Abdominal Pain (ED) Additional Instructions: Please take medication as prescribed. Do not drive or operate machinery while taking pain medication. Increase your water intake. Follow-up with a primary care doctor. Follow-up with a general surgeon. Return to emergency room immediately for any new or worsening symptoms including but not limited to worsening of abdominal pain, vomiting, fever, unable to tolerate by mouth intake, etc. Prescriptions: Famotidine [Pepcid] 40 mg PO QHS #14 tablet traMADoL [Ultram 50 MG tab] 50 mg PO Q6HR PRN #10 tablet PRN Reason: Pain , Severe (7-10) Referrals: PRIMARY CAREMD [Primary Care Provider] - 2-3 Days ISELA ANDERSON MD [Staff Physician] - 2-3 Days Forms: Work/School Release Form(ED) Time of Disposition: 18:36 Print Language: STATELESS
[2019-12-19 16:50] LABS: Bilirubin,Urine NEG (Negative); Blood,Urine NEG (Negative); Color,Urine Straw (Yellow); Protein,Urine <15 mg/dL mg/dL (Negative); Urobilinogen,Urine < 2.0 mg/dL (<2.0); WBC,Urine < 1.0 /HPF (0.0-6.0)
--- NOTE | 2019-12-19 17:17 | Cat Scan Report ---
CT OF THE ABDOMEN AND PELVIS WITH INTRAVENOUS CONTRAST INDICATION / CLINICAL INFORMATION: Abdominal and back pain with nausea. TECHNIQUE: The patient received 100 cc Omnipaque [address] scans at this location are performed using CT dose reduction for ALARA by means of automated exposure control. COMPARISON: 07/02/2019. FINDINGS: ABDOMEN: There are several tiny calcified stones in the gallbladder. The gallbladder is normal in siz e without wall thickening or bile duct dilatation. The liver, spleen, pancreas, and adrenal glands ar e normal. There are a couple of tiny bilateral simple renal cysts. There are surgical changes involvi ng the stomach. There is no evidence of bowel obstruction, wall thickening or free air. There is a sm all stable fat-containing hernia involving the right lateral abdominal wall posteriorly between the 1 1th and 12th ribs without acute complication. No adenopathy is seen. There are moderate atherosclerot ic calcifications involving aorta without aneurysm. Mild bibasilar subsegmental atelectasis is presen t. PELVIS: The prostate gland is moderately enlarged. The distal ureters and urinary bladder are normal. A normal appendix is present. There are multiple left colonic diverticula without acute inflammation . No abnormal mass or fluid collection is seen. There is mild heterotopic ossification in the iliopso as tendon distally on the left. There are advanced degenerative changes involving the left hip. Advan abdulkadir lumbar spondylosis is also present. IMPRESSION: 1. No acute abnormality or significant change. 2. Cholelithiasis without CT evidence of acute cholecystitis. 3. Diverticulosis. Signer Name: Francisco J Kelly MD Signed: 12/19/2019 5:12 PM Workstation Name: [id number]
== END 2019-12-19 18:47 | disposition home or self-care (01) ==
LOC: ED 12:51
DX: K80.80 Other cholelithiasis without obstruction (principal); K57.90 Diverticulosis of intestine, part unspecified, without perforation or abscess without bleeding; K21.9 Gastro-esophageal reflux disease without esophagitis; Z98.890 Other specified postprocedural states; Z79.899 Other long term (current) drug therapy
CPT/HCPCS: 36415; 74177; 80053; 81001; 82550; 83690; 83735; 84484; 85025; 93005; 96361; 96374; 96375; 99284; J2270; J2405; J7030; Q9967

== ENCOUNTER 2020-06-22 05:32 | Emergency (ER) | payer MEDICARE ==
[2020-06-22 05:45] VITALS: BP 150/71
[2020-06-22 06:26] LABS: Hemoglobin 13.6 gm/dl (11.8-15.2); Mean Corpuscular HGB Conc 34 % (32-34); Mean Corpuscular Volume 97 fl (84-94); Platelet Count 285 K/mm3 (140-440); Red Blood Count 4.12 M/mm3 (3.65-5.03); Red Cell Distribution Width 12.4 % (13.2-15.2)
--- NOTE | 2020-06-22 06:33 | Emergency Department Report ---
HPI - General Chief Complaint: Abdominal Pain Time Seen by Provider: 06/22/20 06:29 - HPI HPI: This is a 69-year-old -[place] male presents to the emergency department from home with complaint of right-sided flank pain that has been going on for t he past 3 days. The pain will sometimes radiate towards his right lower back. He denies any fever, nausea, vomiting, diarrhea, constipation. He has not taken anything for symptoms prior to presentation. No recent travel or sick contacts at home. His pain is currently 5 out of 10 in intensity. No known aggravating or alleviating factors. He has a past medical history of GERD, enlarged prosta te, previous GI bleed with subsequent intestinal surgery, and 2 inguinal hernia repairs. He does not currently have a primary care physician. ED Past Medical Hx - Past Medical History Previous Medical History?: Yes Hx GERD: Yes Additional medical history: GI BLEED. PROSTATE - Surgical History Past Surgical History?: Yes Additional Surgical History: HERNIA REPAIR X 2 - Social History Smoking Status: Never Smoker Substance Use Type: None - Medications Home Medications: Home Medications Medication Instructions Recorded Confirmed Last Taken Type Omeprazole [PriLOSEC] 20 mg PO QDAY 07/22/14 07/22/14 Unknown History Pantoprazole Sodium [Protonix] 20 mg PO BID #60 tablet. 07/23/14 Unknown Rx hydroCHLOROthiazide [Hctz] 12.5 mg PO QDAY #30 capsule 07/23/14 Unknown Rx Cyclobenzaprine [Flexeril] 10 mg PO TID PRN #30 tablet 09/24/16 Unknown Rx Naproxen [Naprosyn TAB] 500 mg PO BID PRN #60 tablet 09/24/16 Unknown Rx Ibuprofen [Motrin 600 MG tab] 600 mg PO Q8H PRN #20 tablet 06/01/19 Unknown Rx Methocarbamol [Robaxin] 500 mg PO BID PRN #15 tablet 06/01/19 Unknown Rx Docusate Sodium [Colace] 100 mg PO BID PRN #14 capsule 07/02/19 Unknown Rx Pantoprazole [Protonix TAB] 20 mg PO BID #60 tablet. 07/02/19 Unknown Rx Sucralfate [Carafate] 1 gm PO ACHS #21 tablet 07/02/19 Unknown Rx Famotidine [Pepcid] 40 mg PO QHS #14 tablet 12/19/19 Unknown Rx traMADoL [Ultram 50 MG tab] 50 mg PO Q6HR PRN #10 tablet 12/19/19 Unknown Rx traMADoL [Ultram 50 MG tab] 50 mg PO Q6HR PRN #10 tablet 06/22/20 Unknown Rx ED Review of Systems ROS: Stated complaint: RT SIDE PAIN Other details as noted in HPI Comment: All other systems reviewed and negative Constitutional: denies: chills, fever Eyes: denies: eye pain, vision change ENT: denies: ear pain, throat pain Respiratory: denies: cough, shortness of breath Cardiovascular: denies: chest pain, palpitations Gastrointestinal: abdominal pain. denies: vomiting Genitourinary: denies: dysuria, discharge Musculoskeletal: back pain. denies: arthralgia Skin: denies: rash, lesions Neurological: denies: headache, weakness Physical Exam - Physical Exam Vital Signs: Vital Signs 06/22/20 05:41 Temperature 98.0 F Pulse Rate 56 L Respiratory 18 Rate Blood Pressure 150/71 O2 Sat by Pulse 94 Oximetry Physical Exam: GENERAL: The patient is well-developed well-nourished. HENT: Normocephalic. Atraumatic. Patient has moist mucous membranes. EYES: Extraocular motions are intact. NECK: Supple. Trachea is midline. CHEST/LUNGS: Clear to auscultation. There is no respiratory distress noted. HEART/CARDIOVASCULAR: Regular. There is no tachycardia. There is no murmur. ABDOMEN: Abdomen is soft. There is right upper quadrant and right middle to lower flank pain that is reproducible to palpation. No guarding. Patient has normal bowel sounds. There is no abdominal distention. SKIN: Skin is warm and dry. NEURO: The patient is awake, alert, and oriented. The patient is cooperative. The patient has no focal neurologic deficits. Normal speech. MUSCULOSKELETAL: There is no tenderness or deformity. There is no limitation range of motion. ED Course Vital Signs 06/22/20 05:41 Temperature 98.0 F Pulse Rate 56 L Respiratory 18 Rate Blood Pressure 150/71 O2 Sat by Pulse 94 Oximetry ED Medical Decision Making - Lab Data Result diagrams: 06/22/20 05:50 06/22/20 05:50 Lab Results 06/22/20 06/22/20 06/22/20 Range/Units 05:50 05:50 06:53 WBC 5.4 (4.5-11.0) K/mm3 RBC 4.12 (3.65-5.03) M/mm3 Hgb 13.6 (11.8-15.2) gm/dl Hct 40.0 (35.5-45.6) % MCV 97 H (84-94) fl MCH 33 H (28-32) pg MCHC 34 (32-34) % RDW 12.4 L (13.2-15.2) % Plt Count 285 (140-440) K/mm3 Add Manual Diff Complete Total Counted 100 Seg Neutrophils % Supervisor Seaming Seg Neuts % (Manual) 30.0 L (40.0-70.0) % Lymphocytes % (Manual) 57.0 H (13.4-35.0) % Monocytes % (Manual) 6.0 (0.0-7.3) % Eosinophils % (Manual) 6.0 H (0.0-4.3) % Basophils % (Manual) 1.0 (0.0-1.8) % Nucleated RBC % Not Reportable Seg Neutrophils # Man 1.6 L (1.8-7.7) K/mm3 Band Neutrophils # 0.0 K/mm3 Lymphocytes # (Manual) 3.1 (1.2-5.4) K/mm3 Abs React Lymphs (Man) 0.0 K/mm3 Monocytes # (Manual) 0.3 (0.0-0.8) K/mm3 Eosinophils # (Manual) 0.3 (0.0-0.4) K/mm3 Basophils # (Manual) 0.1 (0.0-0.1) K/mm3 Metamyelocytes # 0.0 K/mm3 Myelocytes # 0.0 K/mm3 Promyelocytes # 0.0 K/mm3 Blast Cells # 0.0 K/mm3 WBC Morphology Not Reportable Hypersegmented Neuts Not Reportable Hyposegmented Neuts Not Reportable Hypogranular Neuts Not Reportable Smudge Cells Not Reportable Toxic Granulation Not Reportable Toxic Vacuolation Not Reportable Dohle Bodies Not Reportable Pelger-Huet Anomaly Not Reportable Cindy Rods Not Reportable Platelet Estimate Consistent w auto Clumped Platelets Not Reportable Plt Clumps, EDTA Not Reportable Large Platelets Not Reportable Giant Platelets Not Reportable Platelet Satelliting Not Reportable Plt Morphology Comment Not Reportable RBC Morphology Normal Dimorphic RBCs Not Reportable Polychromasia Not Reportable Hypochromasia Not Reportable Poikilocytosis Not Reportable Anisocytosis Not Reportable Microcytosis Not Reportable Macrocytosis Not Reportable Spherocytes Not Reportable Pappenheimer Bodies Not Reportable Sickle Cells Not Reportable Target Cells Not Reportable Tear Drop Cells Not Reportable Ovalocytes Not Reportable Helmet Cells Not Reportable [place] Bodies Not Reportable [place] Rings Not Reportable [place] Cells Not Reportable Bite Cells Not Reportable Crenated Cell Not Reportable Elliptocytes Not Reportable Acanthocytes (Spur) Not Reportable Rouleaux Not Reportable Hemoglobin C Crystals Not Reportable Schistocytes Not Reportable Malaria parasites Not Reportable Aric Bodies Not Reportable Hem Pathologist Commnt No Sodium 142 (137-145) mmol/L Potassium 4.1 (3.6-5.0) mmol/L Chloride 105.6 (98-107) mmol/L Carbon Dioxide 27 (22-30) mmol/L Anion Gap 14 mmol/L BUN 8 L (9-20) mg/dL Creatinine 0.8 (0.8-1.3) mg/dL Estimated GFR > 60 ml/min BUN/Creatinine Ratio 10 % Glucose 114 H (75-100) mg/dL Calcium 9.0 (8.4-10.2) mg/dL Total Bilirubin 0.60 (0.1-1.2) mg/dL AST 18 (5-40) units/L ALT 14 (7-56) units/L Alkaline Phosphatase 48 (35-129) units/L Total Protein 7.0 (6.3-8.2) g/dL Albumin 4.2 (3.9-5) g/dL Albumin/Globulin Ratio 1.5 % Urine Color Yellow (Yellow) Urine Turbidity Clear (Clear) Urine pH 6.0 (5.0-7.0) Ur Specific [place] 1.006 (1.003-1.030) Urine Protein <15 mg/dl (Negative) mg/dL Urine Glucose (UA) Neg (Negative) mg/dL Urine Ketones Neg (Negative) mg/dL Urine Blood Neg (Negative) Urine Nitrite Neg (Negative) Urine Bilirubin Neg (Negative) Urine Urobilinogen < 2.0 (<2.0) mg/dL Ur Leukocyte Esterase Neg (Negative) Urine WBC (Auto) < 1.0 (0.0-6.0) /HPF Urine RBC (Auto) 1.0 (0.0-6.0) /HPF Urine Bacteria (Auto) 1+ (Negative) /HPF - Radiology Data Radiology results: report reviewed CT ABDOMEN AND PELVIS WITHOUT CONTRAST INDICATION: Right flank pain for 5 days. TECHNIQUE: Axial CT images were obtained through the abdomen and pelvis without IV contrast. All CT scans at this location are performed using CT dose reduction for ALARA by means of automated exposure control. COMPARISON: CT abdomen and pelvis 12/19/2019 FINDINGS: LOWER CHEST: No significant abnormality. Linear parenchymal scarring both lower lobes, unchanged LIVER: No significant abnormality. GALLBLADDER: Calcified gallstones within gallbladder neck without CT evidence for cholecystitis. BILE DUCTS: No significant abnormality. PANCREAS: No significant abnormality. SPLEEN: No significant abnormality. ADRENALS: No significant abnormality. RIGHT KIDNEY and URETER: No significant abnormality. LEFT KIDNEY and URETER: No significant abnormality. STOMACH and SMALL BOWEL: Gastric bypass surgery again noted COLON: No significant abnormality. APPENDIX: No significant abnormality. PERITONEUM: No free fluid. No free air. No fluid collection. LYMPH NODES: No significant adenopathy. AORTA and ARTERIES: Moderate vascular calcifications nonaneurysmal aorta. IVC and VEINS: No significant abnormality. URINARY BLADDER: No significant abnormality. REPRODUCTIVE ORGANS: No significant abnormality. ADDITIONAL FINDINGS: None. SKELETAL SYSTEM: Advanced left hip arthropathy with marked concentric joint space loss, protrusio acetabuli and extensive erosive changes within the femoral head and acetabulum. Moderately advanced degenerative changes of lumbar spine IMPRESSION: 1. Cholelithiasis without CT evidence for cholecystitis, unchanged. 2. Moderate left colonic diverticulosis without diverticulitis, unchanged 3. No urinary tract calculi or hydronephrosis - Medical Decision Making This patient presents to the emergency department with a few days of some right- sided flank and abdominal pain. There is some reproducible tenderness to palpation in these areas. The abdomen is soft, nondistended and nontoxic in carlos earance. Labs have been unremarkable including CBC, metabolic panel and urinalysis. CT scan of the abdomen and pelvis shows some cholelithiasis without cholecystitis. No signs of any nephrolithiasis or hydronephrosis. Patient's vital signs have been reassuring throughout his ED course including being afebrile. Patient will be discharged home to follow-up outpatient with a general surgeon to establish care regarding his cholelithiasis. He was also given some outpatient referrals for primary care to establish care. He will return to the emergency department with any worsening of his symptoms or with any acute distress. Critical Care Time: No Critical care attestation.: If time is entered above; I have spent that time in minutes in the direct care of this critically ill patient, excluding procedure time. ED Disposition Clinical Impression: Abdominal pain Qualifiers: Abdominal location: unspecified location Qualified Code(s): R10.9 - Unspecified abdominal pain Cholelithiasis Qualifiers: Cholelithiasis location: gallbladder Cholecystitis presence: without michelle cystitis Biliary obstruction: without biliary obstruction Qualified Code(s): K80.20 - Calculus of gallbladder without cholecystitis without obstruction Disposition: TO HOME OR SELFCARE Is pt being admited?: No Condition: Stable Instructions: Cholelithiasis, Abdominal Pain, Adult, Flank Pain, Adult Additional Instructions: Please follow-up with a primary care physician in the next few days. I have given you a referral for a local primary care physician and a clinic. I am giving you a referral for a local general surgeon, Dr. Issa, to follow- up regarding your abdominal pain and findings of cholelithiasis (gallstones). You have been prescribed a medication that is sedating and therefore should not be taken prior to driving, working, and responsible for children and in no way should be mixed with alcohol of any quantity. Return to the emergency department with any worsening of your symptoms, new or c oncerning symptoms not addressed during this current emergency department visit, or with any acute distress. Prescriptions: traMADoL [Ultram 50 MG tab] 50 mg PO Q6HR PRN #10 tablet PRN Reason: Pain Referrals: PRIMARY MD LONA [Primary Care Provider] - 3-5 Days JENNIFER ISSA MD [Staff Physician] - 3-5 Days BRISEIDA FOWLER MD [Staff Physician] - 3-[address] [facility] [Provider Group] - 3-5 Days Time of Disposition: 09:11
[2020-06-22 06:41] LABS: Alanine Aminotransferase 14 units/L (7-56); Albumin 4.2 g/dL (3.9-5); BUN/Creatinine Ratio 10; Blood Urea Nitrogen 8 mg/dL (9-20); Hemolysis Index 10
[2020-06-22 07:17] LABS: Total Cells Counted 100
[2020-06-22 07:18] LABS: Platelet Estimate Consistent w Auto; RBC Morphology Normal
--- NOTE | 2020-06-22 07:37 | Cat Scan Report ---
CT ABDOMEN AND PELVIS WITHOUT CONTRAST INDICATION: Right flank pain for 5 days. TECHNIQUE: Axial CT images were obtained through the abdomen and pelvis without IV contrast. All CT scans at [facility] location are performed using CT dose reduction for ALARA by means of automated exposure control. COMPARISON: CT abdomen and pelvis 12/19/2019 FINDINGS: LOWER CHEST: No significant abnormality. Linear parenchymal scarring both lower lobes, unchanged LIVER: No significant abnormality. GALLBLADDER: Calcified gallstones within gallbladder neck without CT evidence for cholecystitis. BILE DUCTS: No significant abnormality. PANCREAS: No significant abnormality. SPLEEN: No significant abnormality. ADRENALS: No significant abnormality. RIGHT KIDNEY and URETER: No significant abnormality. LEFT KIDNEY and URETER: No significant abnormality. STOMACH and SMALL BOWEL: Gastric bypass surgery again noted COLON: No significant abnormality. APPENDIX: No significant abnormality. PERITONEUM: No free fluid. No free air. No fluid collection. LYMPH NODES: No significant adenopathy. AORTA and ARTERIES: Moderate vascular calcifications nonaneurysmal aorta. IVC and VEINS: No significant abnormality. URINARY BLADDER: No significant abnormality. REPRODUCTIVE ORGANS: No significant abnormality. ADDITIONAL FINDINGS: None. SKELETAL SYSTEM: Advanced left hip arthropathy with marked concentric joint space loss, protrusio isreal tabuli and extensive erosive changes within the femoral head and acetabulum. Moderately advanced dege nerative changes of lumbar spine IMPRESSION: 1. Cholelithiasis without CT evidence for cholecystitis, unchanged. 2. Moderate left colonic diverticulosis without diverticulitis, unchanged 3. No urinary tract calculi or hydronephrosis Signer Name: Augusto Benitez MD Signed: 06/22/2020 7:32 AM Workstation Name: [id number]
[2020-06-22 08:38] LABS: Bacteria,Urine 1+ /HPF (Negative); Bilirubin,Urine NEG (Negative); Blood,Urine NEG (Negative); Color,Urine Yellow (Yellow); Protein,Urine <15 mg/dL mg/dL (Negative); Urobilinogen,Urine < 2.0 mg/dL (<2.0); WBC,Urine < 1.0 /HPF (0.0-6.0)
== END 2020-06-22 09:22 | disposition home or self-care (01) ==
LOC: ED 05:32
DX: K80.20 Calculus of gallbladder without cholecystitis without obstruction (principal); R10.9 Unspecified abdominal pain; K21.9 Gastro-esophageal reflux disease without esophagitis; Z79.899 Other long term (current) drug therapy; Z98.890 Other specified postprocedural states
CPT/HCPCS: 36415; 74176; 80053; 81001; 85007; 85025

== ENCOUNTER 2020-10-27 15:40 | Emergency (ER) | payer MEDICARE ==
[2020-10-27 18:09] VITALS: BP 157/82
[2020-10-27 19:29] LABS: Basophils % (Auto) 0.7 % (0.0-1.8); Eosinophils # (Auto) 0.2 K/mm3 (0.0-0.4); Eosinophils % (Auto) 3.4 % (0.0-4.3); Hematocrit 42.1 % (35.5-45.6); Hemoglobin 14.4 gm/dl (11.8-15.2); Lymphocytes # (Auto) 2.5 K/mm3 (1.2-5.4); Lymphocytes % (Auto) 41.5 % (13.4-35.0); Mean Corpuscular HGB Conc 34 % (32-34); Mean Corpuscular Volume 100 fl (84-94); Monocytes # (Auto) 0.7 K/mm3 (0.0-0.8); Monocytes % (Auto) 11.8 % (0.0-7.3); Platelet Count 300 K/mm3 (140-440); Red Blood Count 4.23 M/mm3 (3.65-5.03); Red Cell Distribution Width 12.6 % (13.2-15.2)
[2020-10-27 19:50] LABS: Alanine Aminotransferase 14 units/L (7-56); Albumin 4.2 g/dL (3.9-5); Blood Urea Nitrogen 9 mg/dL (9-20); Calcium 9.4 mg/dL (8.4-10.2); Hemolysis Index 12
[2020-10-27 19:57] LABS: BUN/Creatinine Ratio 15
== END 2020-10-28 02:24 | disposition left against medical advice (07) ==
LOC: ED 15:40
DX: R10.9 Unspecified abdominal pain (principal); Z53.21 Procedure and treatment not carried out due to patient leaving prior to being seen by health care provider
CPT/HCPCS: 36415; 80053; 83690; 85025

== ENCOUNTER 2021-05-13 16:31 | Emergency (ER) | payer MEDICARE ==
[2021-05-13] MEDS ORDERED: KETOROLAC 10 MG TAB PO ONE (18:00)
[2021-05-13] MEDS ORDERED: CYCLOBENZAPRINE 10 MG TAB PO ONE (18:01)
[2021-05-13 20:57] LABS: RBC,Urine < 1.0 /HPF (0.0-6.0)
[2021-05-13 21:01] LABS: Bilirubin,Urine Negative (Negative); Blood,Urine Negative (Negative); Color,Urine Yellow (Yellow); Protein,Urine <15 mg/dL mg/dL (Negative)
[2021-05-13 21:02] LABS: Urobilinogen,Urine < 2.0 mg/dL (<2.0)
--- NOTE | 2021-05-13 21:15 | Emergency Department Report ---
ED Back Pain/Injury HPI - General Chief Complaint: Back Pain/Injury Stated Complaint: LOWER BACK PAIN Time Seen by Provider: 05/13/21 18:00 Source: patient Limitations: No Limitations - History of Present Illness Initial Comments: 70 yom with no stated pmh presents to ed for evaluation of 2 day history of lower back pain. He denies any injury but states that he woke up with pain and it has been getting progressively worse since then. He denies fever or urinary symptoms but states that he took 2 levaquin tablets that he felt improved his pain. He denies any saddle numbness let pain or numbness. Complaint: back pain -: Gradual, days(s) (2) Similar Symptoms Previously: No Place: home Radiation: none Severity: severe - Related Data Home Medications Medication Instructions Recorded Confirmed Last Taken Omeprazole [PriLOSEC] 20 mg PO QDAY 07/22/14 07/22/14 Unknown Previous Rx's Medication Instructions Recorded Last Taken Type Pantoprazole Sodium [Protonix] 20 mg PO BID #60 tablet. 07/23/14 Unknown Rx hydroCHLOROthiazide [Hctz] 12.5 mg PO QDAY #30 capsule 07/23/14 Unknown Rx Cyclobenzaprine [Flexeril] 10 mg PO TID PRN #30 tablet 09/24/16 Unknown Rx Naproxen [Naprosyn TAB] 500 mg PO BID PRN #60 tablet 09/24/16 Unknown Rx Ibuprofen [Motrin 600 MG tab] 600 mg PO Q8H PRN #20 tablet 06/01/19 Unknown Rx Methocarbamol [Robaxin] 500 mg PO BID PRN #15 tablet 06/01/19 Unknown Rx Docusate Sodium [Colace] 100 mg PO BID PRN #14 capsule 07/02/19 Unknown Rx Pantoprazole [Protonix TAB] 20 mg PO BID #60 tablet. 07/02/19 Unknown Rx Sucralfate [Carafate] 1 gm PO ACHS #21 tablet 07/02/19 Unknown Rx Famotidine [Pepcid] 40 mg PO QHS #14 tablet 12/19/19 Unknown Rx traMADoL [Ultram 50 MG tab] 50 mg PO Q6HR PRN #10 tablet 12/19/19 Unknown Rx traMADoL [Ultram 50 MG tab] 50 mg PO Q6HR PRN #10 tablet 06/22/20 Unknown Rx Cyclobenzaprine [Flexeril] 10 mg PO TID PRN #21 tab 05/13/21 Unknown Rx Naproxen [Naprosyn] 500 mg PO BID #14 tab 05/13/21 Unknown Rx Allergies Allergy/AdvReac Type Severity Reaction Status Date / Time No Known Allergies Allergy Verified 10/27/20 18:03 ED Review of Systems ROS: Stated complaint: LOWER BACK PAIN Other details as noted in HPI Comment: All other systems reviewed and negative Constitutional: no symptoms reported Respiratory: no symptoms reported Cardiovascular: denies: chest pain Endocrine: no symptoms reported Gastrointestinal: denies: abdominal pain, nausea, vomiting, diarrhea, hematemesis, melena, hematochezia Musculoskeletal: back pain Neurological: denies: numbness, paresthesias, abnormal gait ED Past Medical Hx - Past Medical History Hx GERD: Yes Additional medical history: GI BLEED/ NEEDS HIP REPLACEMENT - Surgical History Past Surgical History?: Yes Additional Surgical History: HERNIA REPAIR X 2 - Social History Smoking Status: Never Smoker Substance Use Type: None - Medications Home Medications: Home Medications Medication Instructions Recorded Confirmed Last Taken Type Omeprazole [PriLOSEC] 20 mg PO QDAY 07/22/14 07/22/14 Unknown History Pantoprazole Sodium [Protonix] 20 mg PO BID #60 tablet. 07/23/14 Unknown Rx hydroCHLOROthiazide [Hctz] 12.5 mg PO QDAY #30 capsule 07/23/14 Unknown Rx Cyclobenzaprine [Flexeril] 10 mg PO TID PRN #30 tablet 09/24/16 Unknown Rx Naproxen [Naprosyn TAB] 500 mg PO BID PRN #60 tablet 09/24/16 Unknown Rx Ibuprofen [Motrin 600 MG tab] 600 mg PO Q8H PRN #20 tablet 06/01/19 Unknown Rx Methocarbamol [Robaxin] 500 mg PO BID PRN #15 tablet 06/01/19 Unknown Rx Docusate Sodium [Colace] 100 mg PO BID PRN #14 capsule 07/02/19 Unknown Rx Pantoprazole [Protonix TAB] 20 mg PO BID #60 tablet. 07/02/19 Unknown Rx Sucralfate [Carafate] 1 gm PO ACHS #21 tablet 07/02/19 Unknown Rx Famotidine [Pepcid] 40 mg PO QHS #14 tablet 12/19/19 Unknown Rx traMADoL [Ultram 50 MG tab] 50 mg PO Q6HR PRN #10 tablet 12/19/19 Unknown Rx traMADoL [Ultram 50 MG tab] 50 mg PO Q6HR PRN #10 tablet 06/22/20 Unknown Rx Cyclobenzaprine [Flexeril] 10 mg PO TID PRN #21 tab 05/13/21 Unknown Rx Naproxen [Naprosyn] 500 mg PO BID #14 tab 05/13/21 Unknown Rx ED Physical Exam - General General appearance: alert, in no apparent distress - Head Head exam: Present: atraumatic, normocephalic - Respiratory Respiratory exam: Present: normal lung sounds bilaterally. Absent: respiratory distress - Cardiovascular Cardiovascular Exam: Present: regular rate - GI/Abdominal GI/Abdominal exam: Present: soft, normal bowel sounds. Absent: distended, tenderness, guarding - Back Exam Back exam: Present: normal inspection, full ROM, tenderness, paraspinal tenderness. Absent: CVA tenderness (R), CVA tenderness (L), muscle spasm, vertebral tenderness - Neurological Exam Neurological exam: Present: alert, oriented X3, normal gait - Psychiatric Psychiatric exam: Present: normal affect, normal mood - Skin Skin exam: Present: warm, dry ED Course Vital Signs 05/13/21 05/13/21 17:30 21:54 Temperature 98 F 97.9 F Pulse Rate 79 79 Respiratory 16 18 Rate Blood Pressure 117/90 129/77 [Left] O2 Sat by Pulse 96 99 Oximetry ED Medical Decision Making - Medical Decision Making 70 yom with no stated pmh presents to ed for evaluation of 2 day history of lower back pain. He denies any injury but states that he woke up with pain and it has been getting progressively worse since then. He denies fever or urinary symptoms but states that he took 2 levaquin tablets that he felt improved his pain. He denies any saddle numbness let pain or numbness. UA was sent to rule out UTI because patient thought that he had some improvement after taking Levaquin. Urine was clean. Back pain improved after medications. Back pain consistent with muscle and tissue pain. Plan to treat patient with NSAIDs and muscle relaxer. Plan reviewed with patient, and he understood and agreed with plan. He was encouraged to follow up with pcp if no improvement or worsening symptoms. Critical Care Time: No Critical care attestation.: If time is entered above; I have spent that time in minutes in the direct care of this critically ill patient, excluding procedure time. ED Disposition Clinical Impression: Back pain Qualifiers: Back pain location: low back pain Chronicity: acute Back pain laterality: bilateral Sciatica presence: without sciatica Qualified Code(s): M54.50 - Low back pain, unspecified Disposition: 01 HOME / SELF CARE / HOMELESS Is pt being admited?: No Does the pt Need Aspirin: No Condition: Stable Instructions: Acute Back Pain, Adult, Back Injury Prevention, [id number] Additional Instructions: Take medications as prescribed. Follow up with primary care provider. Return to ED if no improvement or worsening symptoms. Prescriptions: Cyclobenzaprine [Flexeril] 10 mg PO TID PRN #21 tab PRN Reason: Muscle Spasm Naproxen [Naprosyn] 500 mg PO BID #14 tab Referrals: OBIE SHARIF MD [Referring] - 3-5 Days Time of Disposition: 21:15
[2021-05-13 22:04] VITALS: BP 129/77
== END 2021-05-13 21:54 | disposition home or self-care (01) ==
LOC: ED 16:31
DX: M54.50 Low back pain, unspecified (principal); K21.9 Gastro-esophageal reflux disease without esophagitis; Z79.899 Other long term (current) drug therapy; Z98.890 Other specified postprocedural states
CPT/HCPCS: 81001; 99283

== ENCOUNTER 2021-12-20 15:17 | Emergency (ER) | payer MEDICARE ==
[2021-12-20] MEDS ORDERED: BENZONATATE 100 MG CAP PO ONE (20:21)
[2021-12-20] MEDS ORDERED: ACETAMINOPHEN W/CODEINE 300-30 MG TAB PO ONE (20:21)
[2021-12-20] MEDS ORDERED: dexAMETHasone 4 MG/ML VIAL PO ONE (20:22)
[2021-12-20] MEDS ORDERED: AMOXICILLIN 500 MG CAP PO ONE (20:22)
--- NOTE | 2021-12-20 20:46 | Emergency Department Report ---
ED ENT HPI - General Chief complaint: Extremity Injury, Upper Stated complaint: SORE THROAT Time Seen by Provider: 12/20/21 20:21 Source: patient Mode of arrival: Ambulatory Limitations: No Limitations - History of Present Illness Initial comments: 71-year-old black male with a past medical history of GERD presents to the emergency department for evaluation of 2-day history of sore throat, cough, congestion, headache, and generalized malaise. He denies fever and shortness of breath. He states that he takes daily sinus medication but has not had any improvement in symptoms. MD complaint: sore throat, other (Cough, congestion) -: Gradual, days(s) (1) Severity: moderate Severity scale (0 -10): 9 Quality: aching Consistency: constant Worsens with: swallowing Associated Symptoms: cough, pain with swallowing, sore throat, rhinorrhea. denies: fever, gum swelling, toothache, tinnitus, hearing loss, discharge from ear - Related Data Home Medications Medication Instructions Recorded Confirmed Last Taken Omeprazole [PriLOSEC] 20 mg PO QDAY 07/22/14 07/22/14 Unknown Previous Rx's Medication Instructions Recorded Last Taken Type Pantoprazole Sodium [Protonix] 20 mg PO BID #60 tablet. 07/23/14 Unknown Rx hydroCHLOROthiazide [Hctz] 12.5 mg PO QDAY #30 capsule 07/23/14 Unknown Rx Cyclobenzaprine [Flexeril] 10 mg PO TID PRN #30 tablet 09/24/16 Unknown Rx Naproxen [Naprosyn TAB] 500 mg PO BID PRN #60 tablet 09/24/16 Unknown Rx Ibuprofen [Motrin 600 MG tab] 600 mg PO Q8H PRN #20 tablet 06/01/19 Unknown Rx Methocarbamol [Robaxin] 500 mg PO BID PRN #15 tablet 06/01/19 Unknown Rx Docusate Sodium [Colace] 100 mg PO BID PRN #14 capsule 07/02/19 Unknown Rx Pantoprazole [Protonix TAB] 20 mg PO BID #60 tablet. 07/02/19 Unknown Rx Sucralfate [Carafate] 1 gm PO ACHS #21 tablet 07/02/19 Unknown Rx Famotidine [Pepcid] 40 mg PO QHS #14 tablet 12/19/19 Unknown Rx traMADoL [Ultram 50 MG tab] 50 mg PO Q6HR PRN #10 tablet 12/19/19 Unknown Rx traMADoL [Ultram 50 MG tab] 50 mg PO Q6HR PRN #10 tablet 06/22/20 Unknown Rx Cyclobenzaprine [Flexeril] 10 mg PO TID PRN #21 tab 05/13/21 Unknown Rx Naproxen [Naprosyn] 500 mg PO BID #14 tab 05/13/21 Unknown Rx Amoxicillin [Amoxicillin TAB] 875 mg PO BID #14 tab 12/20/21 Unknown Rx Benzonatate [Tessalon Perles] 100 mg PO Q8HR PRN #30 cap 12/20/21 Unknown Rx guaiFENesin/CODEINE [Robitussin AC] 10 ml PO TID PRN #120 ml 12/20/21 Unknown Rx methylPREDNISolone [Medrol 4MG 4 mg PO DAILY #1 pack 12/20/21 Unknown Rx DOSEPAK (21 tabs)] Allergies Allergy/AdvReac Type Severity Reaction Status Date / Time No Known Allergies Allergy Verified 12/20/21 16:03 ED Dental HPI - General Chief complaint: Extremity Injury, Upper Stated complaint: SORE THROAT Time Seen by Provider: 12/20/21 20:21 Source: patient Mode of arrival: Ambulatory Limitations: No Limitations - Related Data Home Medications Medication Instructions Recorded Confirmed Last Taken Omeprazole [PriLOSEC] 20 mg PO QDAY 07/22/14 07/22/14 Unknown Previous Rx's Medication Instructions Recorded Last Taken Type Pantoprazole Sodium [Protonix] 20 mg PO BID #60 tablet. 07/23/14 Unknown Rx hydroCHLOROthiazide [Hctz] 12.5 mg PO QDAY #30 capsule 07/23/14 Unknown Rx Cyclobenzaprine [Flexeril] 10 mg PO TID PRN #30 tablet 09/24/16 Unknown Rx Naproxen [Naprosyn TAB] 500 mg PO BID PRN #60 tablet 09/24/16 Unknown Rx Ibuprofen [Motrin 600 MG tab] 600 mg PO Q8H PRN #20 tablet 06/01/19 Unknown Rx Methocarbamol [Robaxin] 500 mg PO BID PRN #15 tablet 06/01/19 Unknown Rx Docusate Sodium [Colace] 100 mg PO BID PRN #14 capsule 07/02/19 Unknown Rx Pantoprazole [Protonix TAB] 20 mg PO BID #60 tablet. 07/02/19 Unknown Rx Sucralfate [Carafate] 1 gm PO ACHS #21 tablet 07/02/19 Unknown Rx Famotidine [Pepcid] 40 mg PO QHS #14 tablet 12/19/19 Unknown Rx traMADoL [Ultram 50 MG tab] 50 mg PO Q6HR PRN #10 tablet 12/19/19 Unknown Rx traMADoL [Ultram 50 MG tab] 50 mg PO Q6HR PRN #10 tablet 06/22/20 Unknown Rx Cyclobenzaprine [Flexeril] 10 mg PO TID PRN #21 tab 05/13/21 Unknown Rx Naproxen [Naprosyn] 500 mg PO BID #14 tab 05/13/21 Unknown Rx Amoxicillin [Amoxicillin TAB] 875 mg PO BID #14 tab 12/20/21 Unknown Rx Benzonatate [Tessalon Perles] 100 mg PO Q8HR PRN #30 cap 12/20/21 Unknown Rx guaiFENesin/CODEINE [Robitussin AC] 10 ml PO TID PRN #120 ml 12/20/21 Unknown Rx methylPREDNISolone [Medrol 4MG 4 mg PO DAILY #1 pack 12/20/21 Unknown Rx DOSEPAK (21 tabs)] Allergies Allergy/AdvReac Type Severity Reaction Status Date / Time No Known Allergies Allergy Verified 12/20/21 16:03 ED Review of Systems ROS: Stated complaint: SORE THROAT Other details as noted in HPI Comment: All other systems reviewed and negative Constitutional: malaise. denies: chills, fever, weakness Eyes: denies: eye discharge, vision change ENT: ear pain, throat pain, congestion. denies: dental pain, hearing loss Respiratory: cough. denies: shortness of breath, SOB with exertion, SOB at rest, stridor, wheezing Cardiovascular: denies: chest pain, palpitations Gastrointestinal: denies: abdominal pain, nausea, vomiting Genitourinary: denies: urgency, dysuria Musculoskeletal: denies: back pain Skin: denies: rash, lesions Neurological: headache. denies: weakness, numbness Psychiatric: denies: anxiety, depression ED Past Medical Hx - Past Medical History Hx GERD: Yes Additional medical history: GI BLEED/ - Surgical History Additional Surgical History: HERNIA REPAIR X 2/ HIP REPLACEMENT - Social History Smoking Status: Never Smoker Substance Use Type: None - Medications Home Medications: Home Medications Medication Instructions Recorded Confirmed Last Taken Type Omeprazole [PriLOSEC] 20 mg PO QDAY 07/22/14 07/22/14 Unknown History Pantoprazole Sodium [Protonix] 20 mg PO BID #60 tablet. 07/23/14 Unknown Rx hydroCHLOROthiazide [Hctz] 12.5 mg PO QDAY #30 capsule 07/23/14 Unknown Rx Cyclobenzaprine [Flexeril] 10 mg PO TID PRN #30 tablet 09/24/16 Unknown Rx Naproxen [Naprosyn TAB] 500 mg PO BID PRN #60 tablet 09/24/16 Unknown Rx Ibuprofen [Motrin 600 MG tab] 600 mg PO Q8H PRN #20 tablet 06/01/19 Unknown Rx Methocarbamol [Robaxin] 500 mg PO BID PRN #15 tablet 06/01/19 Unknown Rx Docusate Sodium [Colace] 100 mg PO BID PRN #14 capsule 07/02/19 Unknown Rx Pantoprazole [Protonix TAB] 20 mg PO BID #60 tablet. 07/02/19 Unknown Rx Sucralfate [Carafate] 1 gm PO ACHS #21 tablet 07/02/19 Unknown Rx Famotidine [Pepcid] 40 mg PO QHS #14 tablet 12/19/19 Unknown Rx traMADoL [Ultram 50 MG tab] 50 mg PO Q6HR PRN #10 tablet 12/19/19 Unknown Rx traMADoL [Ultram 50 MG tab] 50 mg PO Q6HR PRN #10 tablet 06/22/20 Unknown Rx Cyclobenzaprine [Flexeril] 10 mg PO TID PRN #21 tab 05/13/21 Unknown Rx Naproxen [Naprosyn] 500 mg PO BID #14 tab 05/13/21 Unknown Rx Amoxicillin [Amoxicillin TAB] 875 mg PO BID #14 tab 12/20/21 Unknown Rx Benzonatate [Tessalon Perles] 100 mg PO Q8HR PRN #30 cap 12/20/21 Unknown Rx guaiFENesin/CODEINE [Robitussin AC] 10 ml PO TID PRN #120 ml 12/20/21 Unknown Rx methylPREDNISolone [Medrol 4MG 4 mg PO DAILY #1 pack 12/20/21 Unknown Rx DOSEPAK (21 tabs)] ED Physical Exam - General Limitations: No Limitations General appearance: alert, in no apparent distress - Head Head exam: Present: atraumatic, normocephalic - Eye Eye exam: Present: normal appearance. Absent: conjunctival injection, periorbital swelling, periorbital tenderness - ENT ENT exam: Absent: normal exam (Bilateral nasal mucosal edema along with bilateral turbinate swelling), normal orophraynx (Erythema noted to posterior oropharynx) - Expanded ENT Exam Expanded Throat exam: Negative: tonsillar erythema, tonsillomegaly, tonsillar exudate, R peritonsillar mass, L peritonsillar mass - Neck Neck exam: Present: normal inspection, tenderness, lymphadenopathy. Absent: full ROM - Respiratory Respiratory exam: Present: normal lung sounds bilaterally. Absent: respiratory distress, wheezes, rales, rhonchi, chest wall tenderness - Cardiovascular Cardiovascular Exam: Present: regular rate, normal heart sounds - GI/Abdominal GI/Abdominal exam: Present: soft, normal bowel sounds. Absent: distended, tenderness, guarding - Extremities Exam Extremities exam: Present: normal inspection, full ROM, normal capillary refill. Absent: pedal edema, joint swelling, calf tenderness - Back Exam Back exam: Present: normal inspection. Absent: CVA tenderness (R), CVA tenderness (L) - Neurological Exam Neurological exam: Present: alert, oriented X3, normal gait - Psychiatric Psychiatric exam: Present: normal affect, normal mood - Skin Skin exam: Present: warm, dry, intact, normal color ED Course Vital Signs 12/20/21 16:04 Temperature 99.1 F Pulse Rate 73 Respiratory 18 Rate Blood Pressure 136/78 O2 Sat by Pulse 95 Oximetry ED Medical Decision Making - Medical Decision Making 71-year-old black male with a past medical history of GERD presents to the emergency department for evaluation of 2-day history of sore throat, cough, congestion, headache, and generalized malaise. He denies fever and shortness of breath. He states that he takes daily sinus medication but has not had any improvement in symptoms. Physical exam most consistent with acute bacterial rhinosinusitis. Patient be discharged home with 7-day course of amoxicillin along with Medrol Dosepak, Tessalon Perles, and Robitussin-AC to use as directed. He is advised to follow- up with his primary care provider if no improvement or worsening symptoms and return to the emergency department as needed. He verbalizes understanding of and agreement with plan of care. Critical care attestation.: If time is entered above; I have spent that time in minutes in the direct care of this critically ill patient, excluding procedure time. ED Disposition Clinical Impression: Acute bacterial rhinosinusitis Disposition: HOME / SELF CARE / HOMELESS Is pt being admited?: No Does the pt Need Aspirin: No Condition: Stable Instructions: Sinusitis, Adult, [id number], Antibiotic Medicine, Adult, [id number] Additional Instructions: Take medications as prescribed. Increase intake of noncaffeinated fluids. Follow-up with your primary care provider if no improvement or worsening symptoms. Return to the emergency department as needed. Prescriptions: Amoxicillin [Amoxicillin TAB] 875 mg PO BID #14 tab methylPREDNISolone [Medrol 4MG DOSEPAK (21 tabs)] 4 mg PO DAILY #1 pack guaiFENesin/CODEINE [Robitussin AC] 10 ml PO TID PRN #120 ml PRN Reason: Cough Benzonatate [Tessalon Perles] 100 mg PO Q8HR PRN #30 cap PRN Reason: Cough Referrals: KELLY VICTORIA MD [Staff Physician] - 3-5 Days Time of Disposition: 20:48
[2021-12-20 21:13] VITALS: BP 129/75
== END 2021-12-20 21:20 | disposition home or self-care (01) ==
LOC: ED 15:17
DX: J01.90 Acute sinusitis, unspecified (principal); B96.89 Other specified bacterial agents as the cause of diseases classified elsewhere
CPT/HCPCS: 99282; J1100